=== PATIENT | male | born 1995 | race Caucasian/White ===

== ENCOUNTER 2022-09-02 20:26 | Emergency (ER) | payer MEDICAID, SELFPAY ==
[2022-09-02 20:28] VITALS: BP 129/93; PULSE 99; RESP 18; TEMP 36.7; O2SAT 99; BMI 31.3
--- NOTE | 2022-09-02 20:59 | EDS_ITS ---
HPI History of Present Illness Chief Complaint: Abd Pain Informant: patient Onset/Context/Timing Onset: Weeks (3-week) Timing: Intermittent Narrative Narrative: Patient presents with intermittent pelvic pain for 3 weeks. He states when he lifts something heavy he will have pain that starts on the left side of his scrotum, wraparound suprapubic area and into the right lower quadrant. He has not noticed any bulging but he is concerned that he has a hernia. No difficulty urinating or having a bowel movement. [facility] Medical History (Updated 09/02/22 @ 21:[address] Sheryl Bermudez MD) Anxiety Asthma Bipolar disorder Depression Schizophrenia Smoker Substance abuse Medical History no medical history no medical history Allergy/AdvReac Type Severity Reaction Status Date / Time No Known Allergies Allergy Verified 09/02/22 20:32 ROS ROS ED Constitutional Constitutional ED: Denies chills or fever(s) Eyes Eyes: Denies discharge from eye(s) ENT ENT ED: Denies discharge from eye(s), rhinorrhea or sore throat Cardiovascular Cardiovascular: Denies chest pain Respiratory/Chest Respiratory/Chest: Denies cough or dyspnea Gastrointestinal Gastrointestinal: Reports abdominal pain; Denies diarrhea, nausea or vomiting Genitourinary Genitourinary ED: Denies difficulty urinating or dysuria Musculoskeletal Musculoskeletal: Denies back pain or extremity pain Integumentary Denies Abrasions or rash Neurologic Neurologic: Denies headache(s) or weakness Psychiatric Psychiatric: Denies anxiety or depression Allergic/Immunologic Allergic/Immunologic ED: Denies lip swelling or urticaria EXAM Physical Exam Const Vital Signs: 09/02/22 20:28 Temperature 98.0 F Temperature Source Temporal Pulse Rate 99 Respiratory Rate 18 Blood Pressure 129/93 H Blood Pressure Mean 105 Pulse Ox 99 Oxygen Delivery Method Room Air Positive well nourished and well developed General Appearance ED: well developed HEENT Reports moist mucous membranes Eyes EOMs intact bilaterally Neck no lymphadenopathy Chest Wall inspection of chest normal and palpation of chest normal Resp normal respiratory effort and clear to auscultation bilaterally Cardio regular rate and regular rhythm GI GI Narrative: Abdomen soft. Minimal tenderness over the right groin line. No palpable hernias are noted even when the patient bears down. Narrative: exam performed with nurse business analysis consultant. Patient has no masses noted in the right groin. Testicles are nontender bilaterally. No palpable masses. Extremity normal to inspection Neuro oriented x3 and no sensory deficits noted Motor Exam: strength 5/5 throughout Psych mental status grossly normal Skin no rashes or lesions noted MDM MDM MDM Narrative Medical decision making narrative: Patient's story is consistent with hernia, although no palpable hernias are noted on exam at this time. He will be given instruction for hernia care and referred to surgery. He can follow-up as an elective outpatient. Return instructions were provided. Discharge Plan Triage Chief Complaint: Abd Pain ED Provider: Sheryl Bermudez Dx/Rx/DC Orders Clinical Impression: Hernia Instructions: ED Hernia (Adult) Primary Care Provider: NOT,DEFINED Referrals: Dragan Vee MD [Med Staff - Active Staff] - As Needed NOT,DEFINED [Primary Care Provider] - Disposition Disposition: Home, Self Care
[2022-09-02 21:28] VITALS: BP 130/68; PULSE 78; RESP 18; O2SAT 97
[2022-09-02 21:30] VITALS: BP 130/68; PULSE 78; RESP 16; O2SAT 97
== END 2022-09-02 23:59 | disposition home or self-care (01) ==
PROVIDERS: Emergency Provider Emergency Medicine; Visit Provider Emergency Medicine
DX: K46.9 Unspecified abdominal hernia without obstruction or gangrene (principal); J45.909 Unspecified asthma, uncomplicated
CPT/HCPCS: 99282